=== PATIENT | male | born 1995 | race African-American/Black ===

== ENCOUNTER 2017-08-28 09:54 | Emergency (ER) | payer OTHER ==
[2017-08-28] MEDS ORDERED: ONDANSETRON HCL INJ/PF 4 MG/2 ML SDV IV ONE (10:19)
[2017-08-28] MEDS ORDERED: MORPHINE SULFATE 10 MG/ML INJ IV ONE (10:19)
[2017-08-28] MEDS ORDERED: LIDOCAINE 1% INJ-PF (10 MG/ML) 30 ML SDV INJ ONE (10:20)
[2017-08-28] MEDS ORDERED: HYDROMORPHONE HCL INJ/PF 2 MG/ML AMPULE IV ONE ×2 (10:36→11:43)
--- NOTE | 2017-08-28 10:42 | ER Document Report ---
ED General - General Chief Complaint: Thumb Injury Stated Complaint: LEFT HAND INJURY Time Seen by Provider: 08/28/17 10:18 Notes: A cable that the patient was working with snapped and hit his left thumb region causing a laceration. A couple of minor little nicks also on that left hand, but no other significant injuries. Particularly, no head injury or neck injury. Up-to-date on tetanus shots. No significant medical problems. Not on any prescription medications on a regular basis. Patient has full range of motion of the left thumb, although it is painful to do so. - Related Data Allergies/Adverse Reactions: No Known Allergies Allergy (Unverified 08/28/17 10:02) Past Medical History - Social History Smoking Status: Unknown if Ever Smoked Family History: Reviewed & Not Pertinent Review of Systems - Review of Systems Notes: CONSTITUTIONAL : Denies fever. CARDIOVASCULAR: Denies chest pain. RESPIRATORY: Denies cough, chest congestion, or shortness of breath. GASTROINTESTINAL: Denies abdominal pain or nausea, vomiting, or diarrhea. GENITOURINARY: Denies difficulty or painful urinating, urinary frequency, blood in urine. Physical Exam - Vital signs Vitals: Temp Pulse Resp BP Pulse Ox 98.4 F 87 16 137/81 H 96 08/28/17 10:06 08/28/17 10:06 08/28/17 10:06 08/28/17 10:06 08/28/17 10:06 Interpretation: Normal - Notes Notes: PHYSICAL EXAMINATION: GENERAL: Well-appearing, no acute distress. HEAD: Atraumatic, normocephalic. NECK: Normal range of motion, supple. LUNGS: Breath sounds clear and equal bilaterally. HEART: Regular rate and rhythm without murmurs heard. ABDOMEN: Soft, nontender. No guarding or rebound or masses felt. Dorsal left hand has about 6 tiny little punctate entry sites which do not contain any foreign bodies. They were opened and cleaned. On the proximal left thumb, towards the palmar aspect, just distal to the thenar region, there is a round 2 cm denuded area of total skin evulsion. The underlying fat is exposed to visually. Patient can flex the thumb easily, although it is painful to do so. Has sensation throughout the distal thumb, distal to the wound. A small piece of denuded external skin is barely attached and the distal portion of the wound. It is not salvageable. Course - Re-evaluation Re-evalutation: 08/28/17 19:05 I discussed the case with Dr. Plata, and I am told him that the laceration does not appear to be something that I can suture and it might require grafting. He said he could see the patient in his office for follow-up tomorrow or next week I called the office and got the patient an appointment for tomorrow morning at 10:40 AM. - Vital Signs Vital signs: Temp Pulse Resp BP Pulse Ox 98.7 F 75 18 128/74 H 98 08/28/17 12:27 08/28/17 12:27 08/28/17 12:27 08/28/17 12:27 08/28/17 12:27 - Diagnostic Test Radiology results interpreted by me: 08/28/17 19:01 X-ray of the left hand is normal. Procedures - Laceration/Wound Repair Left Proximal Finger Thumb Wound length (cm): 2 Wound's Depth, Shape: Irregular, Other - Circular, round evulsion of skin with fat tissue exposed.. No: Into muscle Laceration pre-procedure: Sterile PPE donned Anesthetic type: 1% Lidocaine Wound explored: Clean Wound Debrided: None Wound Repaired With: Other - None. The laceration is a complete avulsion of external skin with no way to pull it together and suture it. Number of Sutures: 0 Layer Closure?: No Post-procedure NV exam normal: Yes Hands back picture: 1 - No suturing performed. Visual and digital exploration of the avulsed skin reveals that the wound does not extend very deeply and does not extend down to the tendons or any of the joint spaces of the thumb. Discharge - Discharge Clinical Impression: Laceration of left thumb Condition: Stable Disposition: HOME, SELF-CARE Additional Instructions: NON-SUTURED LACERATION: Your laceration did not require suturing. Some lacerations cannot be sutured because of increased infection risk, while others simply don't need stitches because they are shallow or very short. Your injury should be protected while it heals. Usually complete healing takes 10 to 14 days. Keep the dressing clean and dry, and change it every day. If you notice increasing pain, redness, swelling, drainage, or tender lumps in the armpit or groin above the injury, infection may be present. You should call the doctor at once. SOAP CLEANSING: Gently wash the wound daily using a mild soap (like Ivory, Phisoderm, Neutrogena). Use warm water, rubbing gently until all debris, ooze, and crusting have been washed from the wound. Allow to dry briefly (about 10 minutes) after cleaning. Repeat this cleansing at least three times a day for the first two days and then once or twice a day. ANTIBIOTIC OINTMENT PROTECTION: Your wounds are such that dressing them is not practical or optional. After cleansing, you should apply a thin coating of antibiotic ointment ( Bacitracin, not Neosporin) to the wounds at least three times daily. This lessens infection risk, and may decrease the amount of scarring. Use a q-tip or dull butter knife, not your finger, to apply this ointment. Any debris or ooze which builds up in the ointment should be gently rubbed off with a sterile gauze pad. Harder crusting may need to be gently scrubbed off with a clean wash cloth with soap and warm water, perhaps applying a warm, wet wash cloth to the wound for ten minutes first. Development of redness, severe itching, or blistering may mean allergy to the ointment. See the doctor. ORAL NARCOTIC MEDICATION: You have been given a prescription for pain control. This medication is a narcotic. It's best taken with food, as nausea can result if taken on an empty stomach. Don't operate machinery or drive within six hours of taking this medication. Do not combine this medicine with alcohol, or with any medication which can cause sedation (such as cold tablets or sleeping pills) unless you get permission from the physician. Narcotics tend to cause constipation. If possible, drink plenty of fluids and eat a diet high in fiber and fruits. FOLLOW-UP CARE: If you have been referred to another physician for follow-up care, call that physicians office for an appointment as you were instructed. If you experience a significant change in your laceration, or if you are concerned there may be an infection (swelling, redness, drainage, increasing tenderness, red streaks, tender lumps in the armpit or groin above the laceration, or fever) , return to the Emergency Department immediately re-evaluation. I have scheduled an appointment for you to see Dr. Seven Plata, at 10:40 AM, tomorrow, August 29. His address and contact information is located elsewhere in these discharge instructions. Please call [phone] or as soon as you can this afternoon to answer any questions their office may have about seeing you tomorrow. Prescriptions: Promethazine HCl [Phenergan 25 mg Tablet] 1 - 2 tab PO Q6HP PRN #20 tablet PRN Reason: Oxycodone HCl/Acetaminophen [Percocet 5-325 mg Tablet] 1 - 2 tab PO Q4H PRN #25 tablet PRN Reason: Forms: Return to Work Referrals: SEVEN PLATA DO [ACTIVE STAFF] - Follow up tomorrow
--- NOTE | 2017-08-28 11:12 | RADIOLOGY REPORT (SQ) ---
EXAM DESCRIPTION: FINGER LEFT COMPLETED DATE/TIME: 08/28/2017 10:36 am REASON FOR STUDY: Cut left thumb COMPARISON: None. NUMBER OF VIEWS: Three views. TECHNIQUE: AP, lateral, and oblique images acquired of the left thumb. LIMITATIONS: None. FINDINGS: MINERALIZATION: Normal. BONES: No acute fracture or dislocation. No worrisome bone lesions. SOFT TISSUES: Bandage artifact. No radiopaque foreign body. OTHER: No other significant finding. IMPRESSION: No acute posttraumatic bony change. Soft tissue swelling. No foreign body. Partially obscurring by bandage artifact. COMMENT: SITE OF TRAUMA/COMPLAINT MARKED/STAMP COMPLETED: YES. TECHNICAL DOCUMENTATION: JOB ID: [id number] [employer]- All Rights Reserved
[2017-08-28 12:28] VITALS: BP 128/74
== END 2017-08-28 12:29 | disposition home or self-care (01) ==
LOC: ER 09:54
PROC: 0HQGXZZ Repair Left Hand Skin, External Approach (ICD-10-PCS; principal; 2017-08-28)
DX: S61.012A Laceration without foreign body of left thumb without damage to nail, initial encounter (principal); W45.8XXA Other foreign body or object entering through skin, initial encounter
CPT/HCPCS: 96376; 99283; 96374; 96375; 73140; 12001; J3490; J1170; J2405

== ENCOUNTER 2018-08-28 09:53 | Emergency (ER) | payer SELFPAY ==
[2018-08-28 11:11] LABS: ABSOLUTE LYMPHOCYTES (AUTO) 1.1 10^3/uL (0.5-4.7); ABSOLUTE MONOCYTES (AUTO) 0.8 10^3/uL (0.1-1.4); ABSOLUTE NEUT (AUTO) 6.3 10^3/uL (1.7-8.2); BASOPHILS % (AUTO) 0.2 % (0-2); EOSINOPHILS % (AUTO) 0.3 % (0-6); HEMATOCRIT 43.6 % (37.9-51.0); HEMOGLOBIN 15.2 g/dL (13.5-17.0); LYMPHOCYTES % (AUTO) 13.8 % (13-45); MEAN CORPUSCULAR HEMOGLOBIN 32.8 pg (27.0-33.4); MEAN CORPUSCULAR HGB CONC 34.8 g/dL (32.0-36.0); MEAN CORPUSCULAR VOLUME 94 fl (80-97); MONOCYTES % (AUTO) 9.8 % (3-13); PLATELET COUNT 262 10^3/uL (150-450); RED BLOOD COUNT 4.62 10^6/uL (4.35-5.55); RED CELL DISTRIBUTION WIDTH 14.4 % (11.5-14.0); SEGMENTED NEUTROPHILS % (AUTO) 75.9 % (42-78); TOTAL CELLS COUNTED % (AUTO) 100 %; WHITE BLOOD COUNT 8.3 10^3/uL (4.0-10.5)
[2018-08-28 11:14] LABS: ALANINE AMINOTRANSFERASE 14 U/L (21-72); ALBUMIN 4.3 g/dL (3.5-5.0); ALKALINE PHOSPHATASE 62 U/L (38-126); ANION GAP 9 (5-19); ASPARTATE AMINO TRANSFERASE 19 U/L (17-59); BILIRUBIN,DIRECT 0.3 mg/dL (0.0-0.4); BILIRUBIN,TOTAL 0.4 mg/dL (0.2-1.3); BLOOD UREA NITROGEN 16 mg/dL (7-20); CALCIUM 9.1 mg/dL (8.4-10.2); CARBON DIOXIDE 26 mmol/L (22-30); CHLORIDE 105 mmol/L (98-107); GLUCOSE 84 mg/dL (75-110); POTASSIUM 3.9 mmol/L (3.6-5.0); SODIUM 140.2 mmol/L (137-145); TOTAL PROTEIN 6.9 g/dL (6.3-8.2)
[2018-08-28 11:15] LABS: ACETAMINOPHEN < 10 ug/mL (10-30); ALCOHOL < 10 mg/dL (NONE DETECTED); SALICYLATE < 1.0 mg/dL (2.0-20.0)
[2018-08-28 11:42] LABS: APPEARANCE,URINE SLIGHTLY-CLOUDY; BILIRUBIN,URINE NEGATIVE (NEGATIVE); COLOR,URINE YELLOW; GLUCOSE, URINE NEGATIVE (NEGATIVE); KETONES,URINE NEGATIVE (NEGATIVE); LEUKOCYTE ESTERASE,URINE NEGATIVE (NEGATIVE); NITRITE,URINE NEGATIVE (NEGATIVE); PROTEIN,URINE NEGATIVE (NEGATIVE); URINE SPECIFIC GRAVITY 1.026
[2018-08-28 11:53] LABS: URINE BARBITURATES SCREEN NEGATIVE; URINE BENZODIAZEPINES SCREEN NEGATIVE; URINE COCAINE SCREEN NEGATIVE; URINE METHADONE SCREEN NEGATIVE; URINE PHENCYCLIDINE SCREEN NEGATIVE
[2018-08-28 11:57] LABS: URINE MARIJUANA (THC) SCREEN UNCONFIRMED POSITIVE
[2018-08-28 11:58] LABS: URINE AMPHETAMINES SCREEN NEGATIVE
--- NOTE | 2018-08-28 12:24 | ER Document Report ---
ED General - General Chief Complaint: Psych Problem Stated Complaint: PSYCH EVAL Time Seen by Provider: 08/28/18 11:01 Mode of Arrival: Medic Information source: Patient, Emergency Med Personnel Notes: 23-year-old male with no significant past medical history presents via EMS after the patient held a gun to his head and threatened to kill himself. Per EMS patient did pull the trigger but there was no gun in the chamber. Patient does admit to this. He states that he has had issues at home but will not elaborate. He denies previous history of depression, anxiety or prior suicide attempt. Patient denies any recent illness, headache, chest pain, abdominal pain. He does admit to occasionally smoking marijuana and states he last smoked yesterday. TRAVEL OUTSIDE OF THE [place] IN LAST 30 DAYS: No - HPI Onset: Just prior to arrival Onset/Duration: Sudden Quality of pain: No pain Severity: None Pain Level: Denies Associated symptoms: None Exacerbated by: Denies Relieved by: Denies Similar symptoms previously: No Recently seen / treated by doctor: No - Related Data Allergies/Adverse Reactions: No Known Allergies Allergy (Unverified 08/28/17 10:02) Past Medical History - General Information source: Patient, [facility] Records - Social History Smoking Status: Current Every Day Smoker Cigarette use (# per day): Yes - 10 Smoking Education Provided: Yes - Smoking cessation counseling was provided for 4 minutes at the bedside Frequency of alcohol use: None Drug Abuse: Marijuana Lives with: Family Family History: Reviewed & Not Pertinent Patient has suicidal ideation: Yes Patient has homicidal ideation: No Renal/ Medical History: Denies: Hx Peritoneal Dialysis Review of Systems - Review of Systems Notes: REVIEW OF SYSTEMS: CONSTITUTIONAL : Denies fever, chills, or sweats. Denies recent illness. Denies weight loss, recent hospitalizations. EENT: Denies visual changes, eye pain. Denies sore throat, oral lesions, difficulty swallowing. CARDIOVASCULAR: Denies chest pain. Denies palpitations. Denies lower extremity edema. RESPIRATORY: Denies cough. Denies shortness of breath, wheezing. GASTROINTESTINAL: Denies abdominal pain or distention. Denies nausea, vomiting, or diarrhea. Denies blood in vomitus, stools, or per rectum. Denies black, tarry stools. Denies constipation. GENITOURINARY: Denies difficulty urinating, painful urination, frequency, blood in urine, testicular pain or penile discharge. MUSCULOSKELETAL: Denies back or neck pain or stiffness. Denies joint pain or swelling. SKIN: Denies rash, lesions or sores. HEMATOLOGIC : Denies easy bruising or bleeding. LYMPHATIC: Denies swollen glands. NEUROLOGICAL: Denies confusion or altered mental status. Denies loss of consciousness. Denies dizziness or lightheadedness. Denies headache. Denies weakness or paralysis. Denies problems difficulty with ambulation, slurred speech. Denies sensory loss, numbness, or tingling. Denies seizures. PSYCHIATRIC: Admits to suicidal ideation, increasing depression. Physical Exam - Vital signs Vitals: Temp Pulse Resp BP Pulse Ox 97.9 F 71 16 132/79 H 98 08/28/18 09:54 08/28/18 09:54 08/28/18 09:54 08/28/18 09:54 08/28/18 09:54 - Notes Notes: PHYSICAL EXAMINATION: GENERAL: Well-appearing, well-nourished and in no acute distress. HEAD: Atraumatic, normocephalic. EYES: Pupils equal round and reactive to light, extraocular movements intact, sclera anicteric, conjunctiva are normal. ENT: Nares patent, oropharynx clear without exudates. Moist mucous membranes. NECK: Normal range of motion, supple without lymphadenopathy LUNGS: Breath sounds clear to auscultation bilaterally and equal. No wheezes rales or rhonchi. HEART: Regular rate and rhythm without murmurs ABDOMEN: Soft, nontender, nondistended abdomen. No guarding, no rebound. No masses appreciated. Musculoskeletal: Normal range of motion, no pitting or edema. No cyanosis. NEUROLOGICAL: Cranial nerves grossly intact. Normal speech, normal gait. Normal sensory, motor exams PSYCH: Flat affect, admits to suicidal ideation with shooting himself. Denies homicidal ideation, visual and auditory hallucinations. SKIN: Warm, Dry, normal turgor, no rashes or lesions noted. Course - Re-evaluation Re-evalutation: 08/28/18 12:23 Laboratory 08/28/18 08/28/18 08/28/18 10:20 10:20 10:20 WBC 8.3 RBC 4.62 Hgb 15.2 Hct 43.6 MCV 94 MCH 32.8 MCHC 34.8 RDW 14.4 H Plt Count 262 Seg Neutrophils % 75.9 Lymphocytes % 13.8 Monocytes % 9.8 Eosinophils % 0.3 Basophils % 0.2 Absolute Neutrophils 6.3 Absolute Lymphocytes 1.1 Absolute Monocytes 0.8 Absolute Eosinophils 0.0 Absolute Basophils 0.0 Sodium 140.2 Potassium 3.9 Chloride 105 Carbon Dioxide 26 Anion Gap 9 BUN 16 Creatinine 1.08 Est GFR ( Amer) > 60 Est GFR (Non-Af Amer) > 60 Glucose 84 Calcium 9.1 Total Bilirubin 0.4 Direct Bilirubin 0.3 Neonat Total Bilirubin Not Reportable Neonat Direct Bilirubin Not Reportable Neonat Indirect Bili Not Reportable AST 19 ALT 14 L Alkaline Phosphatase 62 Total Protein 6.9 Albumin 4.3 Urine Color Urine Appearance Urine pH Ur Specific Grant Urine Protein Urine Glucose (UA) Urine Ketones Urine Blood Urine Nitrite Urine Bilirubin Urine Urobilinogen Ur Leukocyte Esterase Urine WBC (Auto) Urine RBC (Auto) Squamous Epi Cells Auto Urine Mucus (Auto) Urine Ascorbic Acid Salicylates < 1.0 L Urine Opiates Screen NEGATIVE Urine Methadone Screen NEGATIVE Acetaminophen < 10 L Ur Barbiturates Screen NEGATIVE Ur Phencyclidine Scrn NEGATIVE Ur Amphetamines Screen NEGATIVE U Benzodiazepines Scrn NEGATIVE Urine Cocaine Screen NEGATIVE U Marijuana (THC) Screen UNCONFIRMED POSITIVE Serum Alcohol < 10 08/28/18 10:20 WBC RBC Hgb Hct MCV MCH MCHC RDW Plt Count Seg Neutrophils % Lymphocytes % Monocytes % Eosinophils % Basophils % Absolute Neutrophils Absolute Lymphocytes Absolute Monocytes Absolute Eosinophils Absolute Basophils Sodium Potassium Chloride Carbon Dioxide Anion Gap BUN Creatinine Est GFR ( Amer) Est GFR (Non-Af Amer) Glucose Calcium Total Bilirubin Direct Bilirubin Neonat Total Bilirubin Neonat Direct Bilirubin Neonat Indirect Bili AST ALT Alkaline Phosphatase Total Protein Albumin Urine Color YELLOW Urine Appearance SLIGHTLY-CLOUDY Urine pH 6.0 Ur Specific Grant 1.026 Urine Protein NEGATIVE Urine Glucose (UA) NEGATIVE Urine Ketones NEGATIVE Urine Blood SMALL H Urine Nitrite NEGATIVE Urine Bilirubin NEGATIVE Urine Urobilinogen 2.0 H Ur Leukocyte Esterase NEGATIVE Urine WBC (Auto) 1 Urine RBC (Auto) 2 Squamous Epi Cells Auto 1 Urine Mucus (Auto) OCC Urine Ascorbic Acid NEGATIVE Salicylates Urine Opiates Screen Urine Methadone Screen Acetaminophen Ur Barbiturates Screen Ur Phencyclidine Scrn Ur Amphetamines Screen U Benzodiazepines Scrn Urine Cocaine Screen U Marijuana (THC) Screen Serum Alcohol Temp Pulse Resp BP Pulse Ox 97.9 F 71 16 132/79 H 98 08/28/18 09:54 08/28/18 09:54 08/28/18 09:54 08/28/18 09:54 08/28/18 09:54 23-year-old male presents via EMS after threatening to shoot himself in the head. IVC petition initiated. Patient has a normal physical exam. Has no prior history of psychiatric illness. Awaiting psych recommendations. 08/28/18 12:24 08/28/18 18:06 Impression\plan: Patient is recommended for IVC. Patient presents after putting a gun to his head and pulling the trigger. There was no bullet in the chamber. He discloses that he did not pull the trigger again because his sisters were present and he did not want them to see it. Patient presents dysphoric and tearful affect and continues to endorse wanting to . Patient was accepted to [facility]; transportation was requested. Dr. Torres was consulted and the care management of this patient; attending physicians in agreement with recommendations and disposition. - Vital Signs Vital signs: Temp Pulse Resp BP Pulse Ox 98.0 F 71 16 129/65 H 98 08/28/18 13:39 08/28/18 13:39 08/28/18 13:39 08/28/18 13:39 08/28/18 13:39 - Laboratory Result Diagrams: 08/28/18 10:20 08/28/18 10:20 Laboratory results interpreted by me: 08/28/18 08/28/18 08/28/18 10:20 10:20 10:20 RDW 14.4 H ALT 14 L Urine Blood SMALL H Urine Urobilinogen 2.0 H Salicylates < 1.0 L Acetaminophen < 10 L - EKG Interpretation by Mo EKG shows normal: Sinus rhythm Rate: Normal Rhythm: NSR When compared to previous EKG there are: Previous EKG unavailable Discharge - Discharge Clinical Impression: Suicidal ideation, Elevated blood pressure reading Condition: Stable Disposition: PSYCH HOSP/UNIT Forms: Elevated Blood Pressure
--- NOTE | 2018-08-28 13:16 | EKG REPORT ---
SEVERITY:- NORMAL ECG - SINUS RHYTHM : Confirmed by: Cirilo Leal MD 28-Aug-2018 13:15:33
--- NOTE | 2018-08-28 13:17 | PSYCHOLOGICAL NOTE ---
Psych Note - Psych Note Date seen by psych provider: 08/28/18 Time seen by psych provider: 11:30 Psych Note: Reason for Consult: suicide attempt 23-year-old male with no significant past medical history presents via EMS after the patient held a gun to his head and tried to kill himself. Patient pulled the trigger; however, there was no bullet in the chamber. He discloses that he has been feeling like he wanted to kill himself since last night. He reports it is "lot built up... I do not feel wanted... By everyone." Patient describes that he is just currently" bad times." He denies any mental health history being on any medication in the past or having any therapy. He denies ever feeling this way before. Patient will not elaborate on stressors or triggers. He reports the thoughts of his sisters kept him from pulling the trigger again; "they were there and I did not want them to see." Patient is alert and orientated to person, place, time and circumstance. Mood is dysphoric with tearful affect. Patient attempted to shoot himself however there was no bullet in the chamber. Patient continues to report wanting to . Patient denies homicidal ideation. Delusions are absent behaviors congruent with an intact reality based presentation i.e. organized and linear thought process. Eye contact is poor. Conversational speech is quiet and difficult to hear at times. Intellectual abilities appear to be within the average range. Attention and concentration are fair. Insight, judgment, impulse control are poor. No medication recommendations at this time 311 (3 2.9) unspecified depressive disorder Impression\\plan: Patient is recommended for IVC. Patient presents after putting a gun to his head and pulling the trigger. There was no bullet in the chamber. He discloses that he did not pull the trigger again because his sisters were p resent and he did not want them to see it. Patient presents dysphoric and tearful affect and continues to endorse wanting to . Patient was accepted to [facility]; transportation was requested. Dr. Torres was consulted and the care management of this patient; attending physicians in agreement with recommendations and disposition.
[2018-08-28 13:40] VITALS: BP 129/65
== END 2018-08-28 15:50 ==
LOC: ER 09:53
DX: R45.851 Suicidal ideations (principal); R03.0 Elevated blood-pressure reading, without diagnosis of hypertension; F32.9 Major depressive disorder, single episode, unspecified; F17.210 Nicotine dependence, cigarettes, uncomplicated
CPT/HCPCS: 36415; 80053; 80307; 81001; 85025; 93005; 93010; 99285; 99406